=== PATIENT | male | born 1985 | race Caucasian/White ===

== ENCOUNTER 2018-12-07 22:05 | Emergency (ER) | payer OTHER ==
[~2018-12-07] VITALS: Ht 170.2 cm; Wt 81.4 kg
[2018-12-07 22:05] VITALS: BP 175/87
[2018-12-07] MEDS ORDERED: ACETAMINOPHEN TAB 650MG DOSE (2X325MG) PO ONE (23:00)
[2018-12-07] MEDS ORDERED: traMADol 50 MG TAB PO ONE (23:00)
[2018-12-07] MEDS ORDERED: IBUPROFEN 600 MG TAB PO ONE ×2 (23:00)
[2018-12-07] MEDS ORDERED: ACETAMINOPHEN 325 MG TAB PO ONE (23:00)
[2018-12-07] MEDS ORDERED: AMOXICILLIN 500 MG CAP PO ONE (23:00)
[2018-12-07] MEDS ORDERED: AMOX500C PO (23:14)
[2018-12-07] MEDS ORDERED: TRAM50TA2 PO (23:14)
[2018-12-07] MEDS ORDERED: PSEU1TAB3 PO (23:14)
== END 2018-12-07 23:18 | disposition home or self-care (01) ==
LOC: M ED 22:05
DX: H66.91 Otitis media, unspecified, right ear (principal); J32.9 Chronic sinusitis, unspecified; F17.200 Nicotine dependence, unspecified, uncomplicated